=== PATIENT | female | born 1990 | race Two or more races ===

== ENCOUNTER 2017-03-01 12:45 | Observation (INO) | payer MEDICAID ==
[~2017-03-01] VITALS: Ht 157.5 cm; Wt 78.5 kg
[2017-03-01] MEDS ORDERED: TERBUTALINE SULFATE 1 MG/ML 1ML VIAL SC ONE (13:45)
[2017-03-01] MEDS ORDERED: TERBUTALINE SULFATE 1 MG/ML 1ML VIAL SC SCH (15:00)
== END 2017-03-01 16:30 | disposition home or self-care (01) | DRG 566 ==
LOC: LDRP 12:45
PROVIDERS: ADMIT Obstetrics & Gynecology; ATTEND Obstetrics & Gynecology
DX: O26.893 Other specified pregnancy related conditions, third trimester (principal); R10.2 Pelvic and perineal pain; M54.5 Low back pain; Z3A.35 35 weeks gestation of pregnancy
CPT/HCPCS: 59025; 76815; 80307; 81002; 96372; G0378; J3105

== ENCOUNTER 2018-05-16 11:45 | Emergency (ER) | payer SELFPAY ==
[~2018-05-16] VITALS: Ht 157.5 cm; Wt 70.3 kg
[2018-05-16 12:05] VITALS: BP 121/67
== END 2018-05-16 13:37 | disposition home or self-care (01) ==
LOC: ER 11:47
DX: N39.0 Urinary tract infection, site not specified (principal)

== ENCOUNTER 2020-11-12 13:04 | Emergency (ER) | payer MEDICAID ==
[~2020-11-12] VITALS: Ht 157.5 cm; Wt 87.1 kg
[2020-11-12 14:42] LABS: Urine Bacteria MOD /hpf (None Seen); Urine Blood 2+ /uL (Negative); Urine Mucus FEW (None Seen); Urine Specific Gravity 1.024 (1.001-1.035); Urine WBC 1259 /hpf (0 - 5); Urine WBC Clumps PRESENT /hpf (None Seen)
[2020-11-12 15:13] LABS: Basophils # (auto) 0.1 10 ^3/uL (0-0.2); Basophils % (auto) 0.4 % (0.0-2.0); Eosinophils # (auto) 0.1 10 ^3/uL (0-0.8); Eosinophils % (auto) 0.3 % (0.0-7.0); Hematocrit 42.2 % (36.0-46.0); Lymphocytes # (auto) 1.7 10 ^3/uL (0.4-5.4); Lymphocytes % (auto) 11.2 % (10.0-50.0); Mean Corpuscular Hemoglobin 30.7 pg (28.0-32.0); Mean Corpuscular Hgb Conc. 35.6 g/dL (32.0-36.0); Mean Corpuscular Volume 86.3 fL (80.0-100.0); Monocytes % (auto) 6.8 % (0.0-12.0); Neutrophils # (auto) 12.4 10 ^3/uL (1.6-8.6); Neutrophils % (auto) 81.3 % (37.0-80.0); Platelet Count (auto) 381 10^3/uL (140-450); Red Blood Cells 4.89 10^6/uL (4.0-5.20); Red Cell Distribution Width 13.9 % (11.8-14.3); White Blood Cell 15.2 10^3/uL (4.4-10.8)
[2020-11-12 15:34] LABS: Calcium 9.1 mg/dL (8.5-10.1)
[2020-11-12 15:37] LABS: Albumin 4.2 g/dL (3.4-5.0); BUN/Creatinine Ratio 12.3
[2020-11-12 15:40] LABS: Bilirubin, Total 0.6 mg/dL (0.2-1.0); Total Protein 8.8 g/dL (6.4-8.2)
[2020-11-12 16:42] VITALS: BP 155/78
[2020-11-12] MEDS ORDERED: SULFAMETHOX W/TRIMETH(800/160MG) DS TAB PO ONE (17:00)
[2020-11-12] MEDS ORDERED: PHENAZOPYRIDINE HCL 100 MG TAB PO ONE (17:00)
== END 2020-11-12 17:17 | disposition home or self-care (01) ==
LOC: ER 13:04
DX: N39.0 Urinary tract infection, site not specified (principal)
CPT/HCPCS: 36415; 80053; 81001; 84702; 85025; 85049